=== PATIENT | female | born 1945 | race Caucasian/White ===

== ENCOUNTER 2018-02-28 17:28 | Observation (INO) | payer OTHER ==
[~2018-02-28] VITALS: Ht 172.7 cm; Wt 86.2 kg
[~2018-02-28 17:28] MED LIST: CARI-316 PO; GABA100C PO; GABA300C10 PO; MORP15TA PO
[2018-02-28 19:49] LABS: Basophils # (auto) 0 uL; Basophils % (auto) 0.4 % (0.0-2.0); Eosinophils # (auto) 0.2 uL; Eosinophils % (auto) 2.1 % (0.0-7.0); Hematocrit 41.4 % (36.0-46.0); Hemoglobin 14.2 g/dL (12.2-16.2); Lymphocytes # (auto) 0.8 uL; Lymphocytes % (auto) 10.6 % (10.0-50.0); Mean Corpuscular Hemoglobin 30.9 pg (28.0-32.0); Mean Corpuscular Hgb Conc. 34.4 g/dL (32.0-36.0); Mean Corpuscular Volume 89.9 fL (80.0-100.0); Monocytes # (auto) 0.5 uL; Monocytes % (auto) 6.5 % (0.0-12.0); Neutrophils # (auto) 6.4 uL; Neutrophils % (auto) 80.4 % (37.0-80.0); Platelet Count (auto) 232 10^3/uL (140-450); Red Blood Cells 4.61 10^6/uL (4.0-5.20); Red Cell Distribution Width 14.3 % (11.8-14.3)
[2018-02-28 20:05] LABS: INR 0.98 (0.9-1.15); Partial Thromboplastin Time 23.6 sec (23.78-33.04); Prothrombin Time 10.5 sec (9.27-12.13)
[2018-02-28 20:12] LABS: Alanine Aminotransferase 22 U/L (13-56); Albumin 3.6 g/dL (3.4-5.0); Alkaline Phosphatase 90 U/L (45-117); Anion Gap 8 (5-15); Aspartate Aminotransferase 16 U/L (15-37); BUN/Creatinine Ratio 20.4; Bilirubin, Total 0.4 mg/dL (0.2-1.0); Blood Urea Nitrogen 20 mg/dL (7-18); Calcium 8.3 mg/dL (8.5-10.1); Carbon Dioxide 27 mmol/L (21-32); Chloride 107 mmol/L (98-107); GFR African American 72 mL/min; GFR Non-African American 60 mL/min; Glucose 160 mg/dL (74-106); Magnesium 2.6 mg/dL (1.6-2.6); Sodium 142 mmol/L (136-145); Total Protein 7.4 g/dL (6.4-8.2)
[2018-02-28] MEDS ORDERED: ONDANSETRON HCL 4 MG/2 ML VIAL IV ONE (20:15)
[2018-02-28] MEDS ORDERED: MORPHINE SULF INJ 2 MG/ML SYRINGE 1ML IV ONE (20:15)
[2018-02-28 21:17] VITALS: BP 127/75
== END 2018-02-28 21:28 | disposition home or self-care (01) | DRG 605 ==
LOC: ER 17:28 → EDBD 17:28 → OVERFLOW 17:29 → ER 21:28
PROVIDERS: ADMIT Family Medicine; ATTEND Family Medicine
DX: S00.03XA Contusion of scalp, initial encounter (principal); W10.9XXA Fall (on) (from) unspecified stairs and steps, initial encounter; Y93.89 Activity, other specified; Y92.89 Other specified places as the place of occurrence of the external cause; Y99.8 Other external cause status; Z79.899 Other long term (current) drug therapy; Z90.49 Acquired absence of other specified parts of digestive tract; Z90.710 Acquired absence of both cervix and uterus
CPT/HCPCS: 36415; 70450; 71045; 80053; 83735; 84484; 85025; 85610; 85730; 96374; 96375; 99285; G0378; J2270; J2405; 93005

== ENCOUNTER 2018-10-24 15:55 | Emergency (ER) | payer OTHER, MEDICARE ==
[~2018-10-24] VITALS: Ht 167.6 cm; Wt 79.4 kg
[~2018-10-24 15:55] MED LIST changes: -CARI-316 PO; +CARI350T22 PO
[2018-10-24 16:39] VITALS: BP 145/75
[2018-10-24] MEDS ORDERED: HYDROcodone-ACET 5/325MG TAB PO ONE (17:00)
== END 2018-10-24 18:18 | disposition home or self-care (01) ==
LOC: EDBD 15:55 → ER 15:55 → EDUNIT# 15:55 → ER 18:18
DX: S00.83XA Contusion of other part of head, initial encounter (principal); E78.5 Hyperlipidemia, unspecified; Z90.49 Acquired absence of other specified parts of digestive tract; Z90.710 Acquired absence of both cervix and uterus; W19.XXXA Unspecified fall, initial encounter; Y93.89 Activity, other specified; Y92.098 Other place in other non-institutional residence as the place of occurrence of the external cause; Y99.8 Other external cause status
CPT/HCPCS: 70450

== ENCOUNTER 2018-11-02 19:19 | Emergency (ER) | payer OTHER ==
[~2018-11-02] VITALS: Ht 167.6 cm; Wt 79.4 kg
[2018-11-02] MEDS ORDERED: MORPHINE SULFATE 10 MG/ML INJ 1ML SDV IM ONE (20:00)
[2018-11-02] MEDS ORDERED: ONDANSETRON HCL 4 MG/2 ML VIAL IM ONE (20:00)
[2018-11-02 20:30] VITALS: BP 153/103
[2018-11-02] MEDS ORDERED: HYDROcodone-ACET 10/325MG TAB PO ONE (22:45)
== END 2018-11-02 23:12 | disposition home or self-care (01) ==
LOC: EDBD 19:19 → ER 19:32
DX: S22.32XA Fracture of one rib, left side, initial encounter for closed fracture (principal); E78.5 Hyperlipidemia, unspecified; Z79.899 Other long term (current) drug therapy; Z90.49 Acquired absence of other specified parts of digestive tract; Z90.710 Acquired absence of both cervix and uterus; W18.39XA Other fall on same level, initial encounter; Y93.89 Activity, other specified; Y99.8 Other external cause status; Y92.89 Other specified places as the place of occurrence of the external cause
CPT/HCPCS: 71046; 96372; 99283; J2270; J2405

== ENCOUNTER 2020-03-19 11:40 | Emergency (ER) | payer OTHER ==
[~2020-03-19] VITALS: Ht 167.6 cm; Wt 79.4 kg
[2020-03-19 11:57] VITALS: BP 131/68
== END 2020-03-19 13:23 | disposition left against medical advice (07) ==
LOC: ER 11:40
DX: M54.9 Dorsalgia, unspecified (principal); Z53.21 Procedure and treatment not carried out due to patient leaving prior to being seen by health care provider

== ENCOUNTER 2020-05-31 11:40 | Observation (INO) | payer OTHER ==
[~2020-05-31] VITALS: Ht 167.6 cm; Wt 74.0 kg
[2020-05-31] MEDS ORDERED: ONDANSETRON HCL 4 MG/2 ML VIAL IV ONE (12:15)
[2020-05-31] MEDS ORDERED: methylPREDNISolone SOD SUCC 125 MG/2 ML VL IV ONE (12:15)
[2020-05-31] MEDS ORDERED: MORPHINE SULFATE 4 MG/ML SYR/VIAL IV ONE (12:15)
[2020-05-31 13:10] LABS: Basophils # (auto) 0.1 10 ^3/uL (0-0.2); Basophils % (auto) 0.6 % (0.0-2.0); Eosinophils # (auto) 0.7 10 ^3/uL (0-0.8); Eosinophils % (auto) 8.3 % (0.0-7.0); Hematocrit 43.8 % (36.0-46.0); Hemoglobin 14.5 g/dL (12.2-16.2); Lymphocytes # (auto) 3.2 10 ^3/uL (0.4-5.4); Lymphocytes % (auto) 38.5 % (10.0-50.0); Mean Corpuscular Hemoglobin 29.3 pg (28.0-32.0); Mean Corpuscular Volume 88.6 fL (80.0-100.0); Monocytes # (auto) 0.6 10 ^3/uL (0-1.3); Monocytes % (auto) 6.9 % (0.0-12.0); Neutrophils # (auto) 3.8 10 ^3/uL (1.6-8.6); Neutrophils % (auto) 45.7 % (37.0-80.0); Nucleated Red Blood Cells % 0.3 %; Platelet Count (auto) 329 10^3/uL (140-450); Red Blood Cells 4.94 10^6/uL (4.0-5.20); Red Cell Distribution Width 14.9 % (11.8-14.3); White Blood Cell 8.3 10^3/uL (4.4-10.8)
[2020-05-31 13:28] LABS: Alanine Aminotransferase 19 U/L (13-56); Albumin 3.5 g/dL (3.4-5.0); Anion Gap 3 (5-15); Blood Urea Nitrogen 18 mg/dL (7-18); CRP High Sensitivity 0.59 mg/dL (< 0.3); Calcium 8.5 mg/dL (8.5-10.1); Carbon Dioxide 25 mmol/L (21-32); Chloride 110 mmol/L (98-107); Glucose 95 mg/dL (74-106); Potassium 3.8 mmol/L (3.5-5.1); Sodium 138 mmol/L (136-145)
[2020-05-31 13:36] LABS: Alkaline Phosphatase 117 U/L (45-117); Aspartate Aminotransferase 19 U/L (15-37); Bilirubin, Total 0.4 mg/dL (0.2-1.0); GFR African American 131 mL/min; GFR Non-African American 108 mL/min; Total Protein 7.4 g/dL (6.4-8.2)
[2020-05-31] MEDS ORDERED: FUROSEMIDE 40 MG/4 ML VIAL IV ONE (14:30)
[2020-05-31] MEDS ORDERED: ENOXAPARIN SOD 40 MG/0.4 ML SYRINGE SC ONE (15:23)
[2020-05-31] MEDS ORDERED: NITROGLYCERIN 0.4 MG SL TAB SL PRN (15:30)
[2020-05-31] MEDS ORDERED: MORPHINE SULF INJ 2 MG/ML SYRINGE 1ML IV PRN (15:30)
[2020-05-31] MEDS ORDERED: ACETAMINOPHEN 325 MG TAB PO PRN (17:15)
[2020-05-31] MEDS ORDERED: ONDANSETRON HCL 4 MG/2 ML VIAL IV PRN (17:15)
[2020-05-31] MEDS: MORPHINE SULF INJ 2 MG/ML SYRINGE 1ML IV PRN (18:08)
--- NOTE | 2020-05-31 18:40 | NUR ---
Telemetry admit from ER [facility] admitted to Telemetry unit after SBAR received. Patient oriented to URI JOHNSON RN primary RN, unit, room, bed, and unit policies regarding patient care and visiting hours. Patient now on continuous telemetry monitoring, tele box # 4 and telemetry reading on arrival to unit is SR 70. Patient placed on bedside oxygen, weighed by bedscale and encouraged to call if they need something. All questions and concerns addressed, patient verbalized understanding.
[2020-05-31 18:43] VITALS: BP 131/74
[2020-05-31 19:30] VITALS: BP 129/50
[2020-05-31] MEDS: levoFLOXacin 500MG 100 ML IV SCH (20:45)
[2020-05-31] MEDS ORDERED: HYDR-392 PO (21:18)
[2020-05-31] MEDS: FUROSEMIDE 40 MG/4 ML VIAL IV SCH (21:59)
[2020-05-31 22:00] VITALS: BP 129/50
[2020-05-31] MEDS: HYDROcodone-ACET 5/325MG TAB PO PRN (22:00)
--- NOTE | 2020-05-31 23:16 | NUR ---
PT STATES HER DAUGHTER EDWARD WILL BRING A COPY OF HER MEDICATION LIST AND ADVANCE DIRECTIVE
[2020-06-01] MEDS: MORPHINE SULF INJ 2 MG/ML SYRINGE 1ML IV PRN ×2 (01:52→07:31)
[2020-06-01 04:46] VITALS: BP 157/75
[2020-06-01] MEDS: HYDROcodone-ACET 5/325MG TAB PO PRN ×2 (05:13→12:52)
[2020-06-01 06:57] LABS: BUN/Creatinine Ratio 33.3; Calcium 8.6 mg/dL (8.5-10.1); Magnesium 2.5 mg/dL (1.6-2.6); Potassium 3.4 mmol/L (3.5-5.1)
[2020-06-01 06:58] LABS: Basophils # (auto) 0 10 ^3/uL (0-0.2); Basophils % (auto) 0.2 % (0.0-2.0); Eosinophils # (auto) 0 10 ^3/uL (0-0.8); Hematocrit 45.1 % (36.0-46.0); Hemoglobin 14.9 g/dL (12.2-16.2); Lymphocytes # (auto) 1.3 10 ^3/uL (0.4-5.4); Lymphocytes % (auto) 14.8 % (10.0-50.0); Mean Corpuscular Hemoglobin 29.2 pg (28.0-32.0); Mean Corpuscular Hgb Conc. 33.1 g/dL (32.0-36.0); Mean Corpuscular Volume 88.4 fL (80.0-100.0); Monocytes # (auto) 0.6 10 ^3/uL (0-1.3); Monocytes % (auto) 6.2 % (0.0-12.0); Neutrophils % (auto) 78.8 % (37.0-80.0); Nucleated Red Blood Cells % 0.1 %; Platelet Count (auto) 317 10^3/uL (140-450); Red Cell Distribution Width 14.7 % (11.8-14.3); White Blood Cell 8.9 10^3/uL (4.4-10.8)
--- NOTE | 2020-06-01 07:30 | NUR ---
END OF SHIFT NOTE ENDORSE PT CARE TO DAY SHIFT RN. PT [id number], NO S/S OF DISTRESS OR SOB
--- NOTE | 2020-06-01 08:42 | NUR ---
PAGED HOSPITALIST TO SEE IF PATIENT CAN RESUME HOME MEDICATION OF MORPHINE 15 MG PO BID FOR CHRONIC BACK PAIN.
[2020-06-01 08:45] VITALS: BP 145/94
--- NOTE | 2020-06-01 09:15 | NUR ---
Message for Dr. Lala Left a message for Dr. Lala at this time. Awaiting callback.
--- NOTE | 2020-06-01 09:18 | NUR ---
Patient Transferred Patient transferred to central unit, 215B. Report received from Zo Torres RN, prior to patient's transfer. Patient oriented to this RN and room. Patient complaining of back pain. Awaiting callback from Dr. Lala to address patient's unrelieved pain. Will continue to round hourly and as needed. Call light within reach.
--- NOTE | 2020-06-01 09:25 | NUR ---
Callback from Dr. Lala Callback from Dr. Lala at this time. Orders given. Will input orders and carryout at this time.
--- NOTE | 2020-06-01 09:25 | NUR ---
TRANSFERRED TO ROOM [address] Mary FRANKLIN AT BEDSIDE NO SIGNS OF DISTRESS.
[2020-06-01] MEDS ORDERED: MORPHINE SULF 15mg ER tab PO SCH (10:00)
[2020-06-01] MEDS ORDERED: ENOXAPARIN SOD 40 MG/0.4 ML SYRINGE SC SCH (10:00)
[2020-06-01] MEDS: levoFLOXacin 500MG 100 ML IV SCH (10:04)
[2020-06-01] MEDS: FUROSEMIDE 40 MG/4 ML VIAL IV SCH (10:05)
[2020-06-01 10:30] VITALS: BP 155/76
[2020-06-01 13:00] VITALS: BP 155/70
[2020-06-01 17:00] VITALS: BP 124/62
[2020-06-01 17:01] VITALS: BP 124/62
--- NOTE | 2020-06-01 18:10 | NUR ---
Discharge Discharge instructions given as ordered. Encourage to follow up with PMD as instructed. All questions and concerns addressed. Patient verbalized understanding. Medication reconciliation form completed and copy given to patient. IV removed with catheter intact, pressure dressing applied. Telemetry unit returned to ICU. Patient taken to vehicle via wheelchair with all personal belongings, accompanied by staff. No distress noted at time of departure.
== END 2020-06-01 18:10 | disposition home or self-care (01) ==
LOC: EDUNIT# 11:40 → EDBD 11:40 → ER 11:40 → INTOOBSV 11:41 → TELE 11:41 → TELE-EAST 18:28 → TELE-CENTR 06-01 09:26
PROVIDERS: ADMIT Internal Medicine; ATTEND Internal Medicine
DX: J18.9 Pneumonia, unspecified organism (principal); Z20.828 Contact with and (suspected) exposure to other viral communicable diseases; I50.9 Heart failure, unspecified; R07.81 Pleurodynia; G89.4 Chronic pain syndrome; M54.9 Dorsalgia, unspecified; R60.9 Edema, unspecified; M19.90 Unspecified osteoarthritis, unspecified site; F32.9 Major depressive disorder, single episode, unspecified; E78.5 Hyperlipidemia, unspecified; Z85.05 Personal history of malignant neoplasm of liver; Z87.891 Personal history of nicotine dependence; Z90.710 Acquired absence of both cervix and uterus; Z96.659 Presence of unspecified artificial knee joint
CPT/HCPCS: 36415; 71045; 80048; 80053; 82728; 83605; 83735; 83880; 84484; 85025; 86141; 87040; 87426; 93005; 93306; 96365; 96366; 96372; 96375; 96376; 99285; C9803; G0378; J1650; J1940; J1956; J2270; J2405; J2930; J7030; U0003; 96374